=== PATIENT | male | born 1960 | race Caucasian/White ===

== ENCOUNTER 2020-08-05 11:14 | Emergency (ER) | payer MEDICARE ==
[2020-08-05 11:57] LABS: BASOPHIL 0.1 % (0-2); EOSINOPHIL 0 % (0-5); HCT 44.7 % (42.0-52.0); HGB 15.1 g/dl (13.2-18.0); LYMPHOCYTE 7.5 % (15-48); MCH 30.6 pg (25.0-31.0); MCHC 33.8 g/dL (32.0-36.0); MCV 90.5 fL (78.0-100.0); MONOCYTE 8.9 % (0-12); MPV 9.7 fL (6.0-9.5); NEUTROPHIL 82.8 % (41-80); NRBC 0; PLT 205 K/uL (150-400); RBC 4.94 M/uL (4.70-6.00); WBC 15.6 K/uL (4.0-10.5)
[2020-08-05] MEDS ORDERED: ALL DAY ALLERGY10 MG PO (11:59)
[2020-08-05] MEDS ORDERED: PRAVASTATIN SOD10 MG PO (11:59)
[2020-08-05] MEDS ORDERED: MUCINEX 600MG600 MG PO (11:59)
[2020-08-05] MEDS ORDERED: B COMPLEX1 EACH PO (12:00)
[2020-08-05] MEDS ORDERED: BREO ELLIPTA 11 EACH INH (12:01)
[2020-08-05] MEDS ORDERED: PRINIVIL10 MG PO (12:02)
[2020-08-05] MEDS ORDERED: METFORMIN HCL500 MG PO (12:02)
[2020-08-05] MEDS ORDERED: FLONASE ALLER15.8 ML (12:03)
[2020-08-05 12:14] LABS: ALBUMIN 4.1 g/dL (3.4-5.0); BUN/CREAT RATIO (CALC) 12.5 RATIO; CREATININE 0.96 mg/dL (0.67-1.17); GLOBULIN (CALCULATION) 4.3 g/dL; POTASSIUM 4.2 mmol/L (3.5-5.1); TOTAL PROTEIN 8.4 g/dL (6.4-8.2)
[2020-08-05 12:17] LABS: LACTIC ACID 1.2 mmol/L (0.4-1.9)
[2020-08-05] MEDS ORDERED: LEVAQUIN500 MG PO (12:33)
[2020-08-05] MEDS ORDERED: PREDNISONE 20MG20 MG PO (12:33)
[2020-08-05 12:34] LABS: BILIRUBIN NEGATIVE (NEGATIVE); BLOOD 2+ Ery/uL (NEGATIVE); CLARITY CLEAR (CLEAR); COLOR YELLOW (YELLOW); GLUCOSE (U) NORMAL (NORMAL); LEUKOCYTES NEGATIVE Leu/uL (NEGATIVE); NITRITE NEGATIVE (NEGATIVE); PROTEIN TRACE (LOW) mg/dL (NEGATIVE); SPECIFIC GRAVITY >=1.030 (1.001-1.030); UROBILINOGEN 0.2 mg/dL (0.2-1.0); pH 5.5 (5.0-9.0)
[2020-08-05 12:46] LABS: URINARY WBC RARE
== END 2020-08-05 12:59 | disposition home or self-care (01) ==
LOC: FER 11:14
PROVIDERS: Emergency Medicine
DX: J44.1 Chronic obstructive pulmonary disease with (acute) exacerbation (principal); E87.1 Hypo-osmolality and hyponatremia
CPT/HCPCS: 36415; 36600; 71046; 80053; 81001; 82803; 83605; 85025; 87040; J2930